=== PATIENT | female | born 1990 | race Asian ===

== ENCOUNTER → 2017-01-31 | Outpatient (CLI) | payer OTHER ==
[~2017-01-31] MED LIST: CETI-115 PO; DESO1TAB4 PO; FLUO-138 PO; PHEN37.586 PO
--- NOTE | 2017-02-01 08:24 | DI ---
Indication: ITS.REASON: R10.11 RUQ ABD PAIN PROCEDURE: US GALLBLADDER: Encounter: Initial Comparison: None Technique: Grayscale and color Doppler sonographic imaging of the right upper quadrant of the abdomen was performed. Findings: Hepatic parenchyma is homogeneous without evidence for focal mass. The gallbladder is normal. There is no wall thickening, pericholecystic fluid, sonographic Langston's sign or cholelithiasis. Both the intra and extrahepatic biliary system are of normal caliber with the common duct measuring 3 mm in dimension. Visualized portions of the head and body of the pancreas are unremarkable. The right kidney is present without collecting system dilatation. The right kidney measures 9.9 cm in length. Impression: Normal right upper quadrant sonogram. .
== END ==
LOC: IMA 16:52
PROVIDERS: ATTEND Nurse Practitioner Family
DX: R10.11 Right upper quadrant pain (principal)